=== PATIENT | male | born 1970 | race African-American/Black ===

== ENCOUNTER 2016-10-13 01:37 | Emergency (ER) | payer MEDICAID ==
[~2016-10-13] VITALS: Ht 185.4 cm; Wt 112.0 kg
[~2016-10-13 01:37] MED LIST: ACET-2128 PO; AMLO1TAB39 PO; CEPH250C2 PO
[2016-10-13] MEDS ORDERED: MAGNESIUM/ALUMINUM HYDROXIDE/SIMETHICONE 30ML UDC PO STA (02:35)
[2016-10-13] MEDS ORDERED: DICYCLOMINE 10 MG/5 ML ORAL SYR PO STA (02:35)
[2016-10-13] MEDS ORDERED: SODIUM CHLORIDE 0.9% 1,000 ML IV ONE (02:35)
[2016-10-13] MEDS ORDERED: VISCOUS LIDOCAINE 2% 15 ML UDC PO STA (02:35)
[2016-10-13] MEDS ORDERED: FAMOTIDINE 20MG/2ML VIAL IV STA (02:35)
[2016-10-13] MEDS ORDERED: IPRATROPIUM BROMIDE (0.02%) 0.5MG/2.5ML NEB HHN STA (02:35)
[2016-10-13] MEDS ORDERED: ONDANSETRON HCL 4MG/2ML VIAL IV STA (02:35)
[2016-10-13] MEDS ORDERED: ALBUTEROL (0.083%) 2.5MG/3ML NEB HHN STA (02:35)
[2016-10-13] MEDS ORDERED: PIPERACILLIN/TAZ 3.375G PREMIX 50 ML IV ONE (02:45)
[2016-10-13] MEDS ORDERED: DEXAMETHASONE 10 MG/ML VIAL IV ONE (02:45)
[2016-10-13 03:03] LABS: BASOPHILS % 0.8 % (0.0-2.0); EOSINOPHILS % 2.1 % (0.0-5.0); HEMATOCRIT. 36.5 % (42.0-52.0); HEMOGLOBIN. 12.2 g/dL (14.0-18.0); LYMPHOCYTES % 18.6 % (20.0-50.0); MEAN CORPUSCULAR HEMOGLOBIN 29.1 pg (28.0-32.0); MEAN CORPUSCULAR VOLUME 87.1 fL (80.0-94.0); MEAN PLATELET VOLUME 7.3 fl (7.4-10.4); MONOCYTES % 13.8 % (2.0-8.0); NEUTROPHILS % 64.7 % (40.0-76.0); PLATELET 229 x1000/uL (130-400); RED BLOOD CELL COUNT 4.19 mill/uL (4.7-6.1); RED CELL DISTRIBUTION WIDTH 14.9 % (11.6-14.6)
[2016-10-13 03:07] LABS: PARTIAL THROMBOPLASTIN TIME 28.4 sec (24.0-34.0); PROTHROMBIN TIME 10.1 sec
[2016-10-13 03:13] LABS: CARBON DIOXIDE 24 mEq/L (21-32); CHLORIDE 92 mEq/L (98-107)
[2016-10-13 05:00] VITALS: BP 147/85
== END 2016-10-13 05:15 | disposition home or self-care (01) ==
LOC: ER 01:38
DX: J03.90 Acute tonsillitis, unspecified (principal); K21.9 Gastro-esophageal reflux disease without esophagitis; I10 Essential (primary) hypertension; F12.10 Cannabis abuse, uncomplicated
CPT/HCPCS: 36415; 71010; 80053; 83690; 85025; 85610; 85730; 87040; 96361; 96365; 96375; 99285; J1100; J2405; J2543; J3490; J7611; J7030

== ENCOUNTER 2018-01-23 20:31 | Emergency (ER) | payer MEDICAID ==
[~2018-01-23] VITALS: Ht 177.8 cm; Wt 100.0 kg
[2018-01-23] MEDS ORDERED: ONDANSETRON HCL 4MG/2ML VIAL IV STA (22:23)
[2018-01-23] MEDS ORDERED: SODIUM CHLORIDE 0.9% 1,000 ML IV ONE (22:23)
[2018-01-23 22:55] LABS: CHLORIDE 98 mEq/L (98-107); HEMATOCRIT. 29.5 % (42.0-52.0); HEMOGLOBIN. 9.5 g/dL (14.0-18.0); MEAN CORPUSCULAR HEMOGLOBIN 24.1 pg (28.0-32.0); MEAN CORPUSCULAR VOLUME 75.1 fL (80.0-94.0); MEAN PLATELET VOLUME 8.3 fl (7.4-10.4); PLATELET 135 x1000/uL (130-400); RED BLOOD CELL COUNT 3.93 mill/uL (4.7-6.1); RED CELL DISTRIBUTION WIDTH 18.6 % (11.6-14.6)
[2018-01-23 22:58] LABS: PROTHROMBIN TIME 9.9 sec (9.1-11.1)
[2018-01-23 23:07] LABS: PLATELET ESTIMATE NORMAL
[2018-01-24 01:33] LABS: CLARITY URINE TURBID (CLEAR); COLOR URINE DARK YELLOW (YELLOW); KETONES URINE TRACE (NEGATIVE); LEUKOCYTE ESTERASE URINE 2+ (NEGATIVE); NITRITE URINE NEGATIVE (NEGATIVE); OCCULT BLOOD URINE 1+ (NEGATIVE); PROTEIN URINE 2+ (NEGATIVE); SPECIFIC GRAVITY URINE 1.019 (1.005-1.030)
[2018-01-24] MEDS ORDERED: CEFTRIAXONE 1 G PREMIX 50 ML IV NR (02:15)
[2018-01-24 05:01] VITALS: BP 124/91
== END 2018-01-24 05:00 | disposition short-term general hospital (02) ==
LOC: ER 21:04
DX: N17.9 Acute kidney failure, unspecified (principal); I10 Essential (primary) hypertension; K57.90 Diverticulosis of intestine, part unspecified, without perforation or abscess without bleeding; F10.20 Alcohol dependence, uncomplicated
CPT/HCPCS: 36415; 74176; 80053; 81003; 85025; 85610; 96361; 96365; 96375; 99285; J0696; J2405; J7030; Z7610